=== PATIENT | female | born 1985 | race African-American/Black ===

== ENCOUNTER 2017-03-19 03:40 | Inpatient (IN) | payer SELFPAY ==
[2017-03-19] MEDS: DEXTROSE 5%-LACTATED RINGERS 1,000 ML IV SCH ×3 (04:30→16:58)
[2017-03-19 05:02] LABS: BASO % 0.3 % (0-2.0); EOS % 0.3 % (0-4.5); HEMATOCRIT 41.8 % (32.4-45.2); HEMOGLOBIN 13.8 GM/dL (10.7-15.3); LYMPH % 29.9 % (8-40); MCH 29.2 pg (25.7-33.7); MEAN CELL VOLUME 88.5 fl (80-96); MEAN PLT VOLUME 11.7 fl (7.5-11.1); MONO % 13.5 % (3.8-10.2); PLATELET COUNT 126 K/MM3 (134-434); RBC 4.72 M/mm3 (3.60-5.2); RDW 16.6 % (11.6-15.6); WHITE BLOOD COUNT 8.7 K/mm3 (4.0-10.0)
--- NOTE | 2017-03-19 05:09 | HP ---
Past Medical History - Primary Care Physician PCP:: Ta Mariscal - Admission Chief Complaint: 39.4 weeks , rom, labor History of Present Illness: 31 yo f g 2 p0010 edc by sono 03/21/17 39,4 weeks c/o ROM since 230 am today , clear fluid , cx closed 50, vx -2 mr, fhr cat 2, contraction q 3 min, mild. History Source: Patient Limitations to Obtaining History: No Limitations - Past Medical History ...: 2 ...Para: 0 ...Spon : 1 ... Weeks Gestation by Dates: 39.4 ...EDC by Dates: 03/21/17 ...EDC by Sono: 03/21/17 - Past Surgical History Hx Myomectomy: No Hx Transabdominal Cerclage: No - Smoking History Have you smoked in the past 12 months: No - Alcohol/Substance Use Hx Alcohol Use: No - Social History Usual Living Arrangement: Yes: With Spouse History of Recent Travel: No Review of Systems - Review of Systems Constitutional: reports: No Symptoms Eyes: reports: No Symptoms HENT: reports: No Symptoms Neck: reports: No Symptoms Cardiovascular: reports: No Symptoms Respiratory: reports: No Symptoms Gastrointestinal: reports: No Symptoms Genitourinary: reports: No Symptoms Breasts: reports: No Symptoms Reported Musculoskeletal: reports: Muscle Pain Integumentary: reports: No Symptoms Neurological: reports: No Symptoms Endocrine: reports: No Symptoms Hematology/Lymphatic: reports: No Symptoms Psychiatric: reports: No Symptoms Physical Exam - Maternity Constitutional: Yes: Well Nourished, No Distress, Calm Eyes: Yes: WNL, Conjunctiva Clear, EOM Intact HENT: Yes: WNL, Atraumatic, Normocephalic Neck: Yes: WNL, Supple, Trachea Midline Cardiovascular: Yes: WNL, Regular Rate and Rhythm Breast(s): Yes: WNL - Abdominal Exam/OB Fundal Height: 40 Number of Fetuses: Single Presentation: Vertex Contractions: Yes Regularity: Regular Intensity: Mod/Strong Monitor Mode: External Heart Rate Location: [facility] Category: I Accelerations: Non-Uniform Decelerations: None - Vaginal Exam/OB Vaginal Bleediing: No Speculum Exam: No Dilatation (cm): closed Effacement (%): 50 Amniotic Membrane Status: Ruptured Nitrazine Test: Positive Presentation: Vertex/Position Station: -2 - Physical Exam Musculoskeletal: Yes: WNL Extremities: Yes: WNL Edema: Yes Edema: LLE: Trace, RLE: Trace Deep Tendon Reflex Grade: Normal +2 Psychiatric: Yes: WNL - Labs Lab Results: CBC, BMP 03/19/17 04:30 Hemorrhage Risk Assessment - Risk Factors Medium Risk Factors: Yes: None High Risk Factors: Yes: None Risk Score: 1 Risk Level: Medium Risk Problem List - Problems (1) with 39 completed weeks gestation Code(s): Z3A.39 - 39 WEEKS GESTATION OF (2) membrane rupture Code(s): ALC7473 - Assessment/Plan admit, FHM, pain management GBS negative
[2017-03-19] MEDS ORDERED: BUTORPHANOL TARTRATE 1 MG/ML VIAL IVPUSH ONE (05:15)
[2017-03-19] MEDS ORDERED: PROMETHAZINE HCL 25 MG/1 ML VIAL IVPUSH ONE (05:15)
[2017-03-19 05:19] LABS: INR 0.92 (0.82-1.09); PROTHROMBIN TIME (PATIENT) 10.4 SEC (9.98-11.88)
[2017-03-19 05:21] LABS: ACTIVATED PTT 28.4 SECONDS (26.9-34.4)
[2017-03-19 05:27] LABS: ANION GAP 12 (8-16); BLOOD UREA NITROGEN 5 mg/dL (7-18); CALCIUM 9.5 mg/dL (8.5-10.1); CHLORIDE 103 mmol/L (98-107); CO2 23 mmol/L (21-32); CREATININE 0.9 mg/dL (0.55-1.02); GLUCOSE,RANDOM 72 mg/dL (74-106); POTASSIUM 4.1 mmol/L (3.5-5.1); SODIUM 138 mmol/L (136-145)
[2017-03-19 05:46] VITALS: BMI 32.1
[2017-03-19] MEDS ORDERED: OXYTOCIN 30 UNITS in 0.9% NS 30 UNIT/500 ML INFUS.BAG IVPB SCH (09:00)
[2017-03-19] MEDS ORDERED: OXYTOCIN 30 UNITS in 0.9% NS 30 UNIT/500 ML INFUS.BAG IVPB ONE (09:06)
[2017-03-19] MEDS ORDERED: BUTORPHANOL TARTRATE 1 MG/ML VIAL ONE ×2 (13:45)
[2017-03-19] MEDS ORDERED: PROMETHAZINE HCL 25 MG/1 ML VIAL ONE (13:45)
[2017-03-19] MEDS ORDERED: CITRIC ACID/SODIUM CITRATE 30 ML UNIT-DOSE CUP PO ONE (18:36)
[2017-03-19] MEDS ORDERED: ELECTROLYTE-148 SOLN 500 ML IV ONE (18:36)
--- NOTE | 2017-03-19 19:25 | PN ---
Ante-Partal Exam - Subjective Subjective: Patient reports pain with contractions 10 Vital Signs: Vital Signs Temperature 97.7 F 03/19/17 18:00 Pulse Rate 106 H 03/19/17 18:00 Respiratory Rate 20 03/19/17 18:00 Blood Pressure 107/68 03/19/17 18:00 O2 Sat by Pulse Oximetry (%) Bleeding: No Headache: No Visual changes: No Right upper quadrant pain: No - Contractions Contractions: Yes Regularity: Regular Intensity: Mod/Strong Monitor Mode: External - Exam during Labor Heart Rate: 130 Variability: Moderate Category: II Monitor Accelerations: Absent Monitor Decelerations: None Exam: Vaginal Dilatation (cm): FT Effacement (%): 80 Amniotic Membrane Status: Intact Presentation: Vertex Station: -3 - Intrapartum Hemorrhage Risk Medium Risk Factors: None High Risk Factors: None Risk Score: 0 Risk Level: Low Risk - Assessment/Plan Assessment/Plan: 31 yo PROM, unchanged exam Discussed unchanged exam since admission and adequate contractions with nonreactive tracing - offered continued augmentation vs delivery. Patient desires delivery via delivery. Discussed risks including but not limited to infection, bleeding requiring transfusion and damage to surrounding organs such as the bowel or bladder. Discussed risk of injury to infant. Discussed risk of wound infection and separation. Discussed need for planning of future children and possibility of abnormal placentation. All questions answered. Patient expressed understanding. Nursing and OR staff notified. Will proceed to OR
[2017-03-19] MEDS ORDERED: morphine SULFATE/Preservative Free 0.5 MG/ML (1cc Syringe) ONE (20:22)
[2017-03-19] MEDS ORDERED: OXYTOCIN 10 UNITS/ML VIAL ONE ×2 (20:25→21:38)
[2017-03-19] MEDS ORDERED: ceFAZolin SODIUM 1 GM VIAL ONE (20:41)
[2017-03-19] MEDS: OXYTOCIN 20 UNITS in 0.9% NS 20 UNIT/1,000 ML INFUS.BAG IV SCH (21:10)
[2017-03-19 21:49] LABS: ARTERIAL BLOOD GAS BASE EXCESS 1.1 meq/l (-2-2); ARTERIAL BLOOD GAS pH 7.3 (7.35-7.45)
[2017-03-19] MEDS ORDERED: IBUPROFEN 800 MG/8 ML IJ IVPB PRN ×2 (21:51→22:10)
[2017-03-19] MEDS ORDERED: oxyCODONE HCL 5 MG TABLET PO PRN ×2 (21:51)
[2017-03-19] MEDS ORDERED: METHYLERGONOVINE MALEATE 0.2 MG/1 ML AMP IM PRN (21:51)
[2017-03-19 21:56] LABS: ARTERIAL BLOOD GAS PCO2 61.3 mmHg (35-45)
[2017-03-19 21:57] LABS: ARTERIAL BLOOD GAS PO2 18.1 mmHg (80-100)
[2017-03-19 21:58] LABS: VENOUS PH 7.3 (7.32-7.42)
--- NOTE | 2017-03-19 21:58 | PN ---
Delivery - Delivery Type of Anesthesia: Spinal EBL (cc): 800 Delivery, Single - Stages of Labor Date of Delivery: 03/19/17 Placenta: Yes: Expressed - Condition of Gender: Female Weight: 9 lb 5.6 oz Position: Left, OA - 1 Minute Total Score: 9 5 Minutes Total Score: 9 - Feeding Plan Initial Plan: Exclusive throughout hospitalization Remarks - Remarks Remarks: Surgeon: Sly Flake Cutter Operator: Brody Anesthesia: Dov, spinal Findings: Female ; LOT position; 9,9; wt 9 lb 5.6 oz; 20 inches IVFluids: 1500 UOP: 200 EBL: 800 Dictation:[id number]
[2017-03-19 21:59] LABS: VENOUS PC02 59.7 mmHg (38-52); VENOUS PO2 24.6 mmHg (28-48)
[2017-03-19] MEDS ORDERED: ONDANSETRON 4 MG/2 ML VIAL IVPUSH PRN (22:10)
[2017-03-19] MEDS ORDERED: OXYTOCIN 20 UNITS in 0.9% NS 20 UNIT/1,000 ML INFUS.BAG IV ONE (23:21)
[2017-03-20 06:41] LABS: BASO % 0.4 % (0-2.0); HEMATOCRIT 37.6 % (32.4-45.2); HEMOGLOBIN 12.3 GM/dL (10.7-15.3); LYMPH % 10.5 % (8-40); MCH 29.3 pg (25.7-33.7); MCHC 32.7 g/dl (32.0-36.0); MEAN CELL VOLUME 89.7 fl (80-96); MEAN PLT VOLUME 11.5 fl (7.5-11.1); NEUT % 80.1 % (42.8-82.8); PLATELET COUNT 128 K/MM3 (134-434); RDW 16.7 % (11.6-15.6); WHITE BLOOD COUNT 16.7 K/mm3 (4.0-10.0)
[2017-03-20] MEDS: OXYTOCIN 20 UNITS in 0.9% NS 20 UNIT/1,000 ML INFUS.BAG IV SCH ×2 (07:40→15:36)
--- NOTE | 2017-03-20 08:21 | OP ---
DATE OF OPERATION: 03/19/2017 ATTENDING PHYSICIAN RESPONSIBLE FOR SIGNING REPORT: Alvina Frank MD PREOPERATIVE DIAGNOSIS: Intrauterine at 39-4/7 weeks, failure to progress, nonreassuring tracing. POSTOPERATIVE DIAGNOSIS: Intrauterine at 39-4/7 weeks, failure to progress, nonreassuring tracing. SURGEON: Alvina Frank MD STOREPERSON: Jessika Skinner MD ANESTHESIOLOGIST: Minh Monae MD ANESTHESIA: Spinal. INTRAVENOUS FLUIDS GIVEN: 1500. URINE OUTPUT: 200. ESTIMATED BLOOD LOSS: 800. FINDINGS: A female infant, LOT position, Apgars 9 and 9. Weight 9 pounds 5.6 ounces, 20 inches. Normal fallopian tubes and enlarged ovaries bilaterally, suspect polycystic appearance. INDICATION FOR PROCEDURE: Patient is a 31-year-old, 2, para 0, who presented with PROM, was started with induction of labor, noted to have no cervical change. Was also noted to have a nonreactive tracing. She was counseled on her risks, benefits, alternatives, and complications of procedure including infection, bleeding, damage to surrounding organs such as bowel, bladder, ureters. She expressed understanding, was brought to the operating room. DESCRIPTION OF PROCEDURE: She was brought to the operating room, and anesthesia was found to be adequate. Patient was prepped and draped in normal sterile fashion, placed in dorsal supine position with a leftward tilt. An approximately 11-cm skin incision was made with a knife and carried down to the underlying rectus muscle using the Bovie electrocautery. The fascia was dissected midline and dissected off the underlying rectus muscles using the Campos scissors. Attention was brought to the inferior portion where, in similar fashion, was tented up using Alysia clamps and dissected off the underlying rectus muscle using the Campos scissors. Attention was brought to the superior portion where, in a similar fashion, was tented up using the Alysia clamps and dissected off the underlying rectus muscle using Campos scissors. The rectus muscles were midline using the Campos scissors, and the peritoneum was entered bluntly. The peritoneal incision was extended superiorly and inferiorly using the Metzenbaum scissors. The vesicouterine peritoneum was identified, entered sharply, and the bladder flap was created digitally. The hysterotomy was performed. Clear fluid was noted. 's head was brought to the hysterotomy site and was delivered, followed by shoulders and body. Infant was handed to waiting NICU staff present for delivery given the heart tracing. Cord blood and cord gases were collected and sent. The placenta was extracted. The uterus was cleared of all clot and debris. The uterus was closed using 0 Biosyn in a running layer, and the second layer was an imbricated layer. The vesicouterine peritoneum was reapproximated using 0 Biosyn in a running fashion. Gutters were cleared of all clot and debris. Bilateral fallopian tubes and ovaries were identified. Fallopian tubes were noted to be normal. Bilateral ovaries were noted to be enlarged with multiple follicles, suspected polycystic appearance. The hysterotomy was examined, found to be hemostatic. The peritoneum was closed using 2-0 Biosyn in a running fashion. The rectus muscles were reapproximated using 0 Biosyn in interrupted fashion. The fascia was closed using 0 Vicryl in a running fashion. Subcutaneous fat was closed using 2-0 Biosyn in an interrupted fashion. Skin was closed using 3-0 Vicryl. The patient tolerated the procedure well. Estimated blood loss was 800 mL. She was brought to recovery room in stable condition. ALVINA FRANK M.D. [id number] MTDD
[2017-03-20] MEDS: ENOXAPARIN NA (PORCINE) 40 MG/0.4 ML DISP.SYRIN SQ SCH (10:02)
--- NOTE | 2017-03-20 10:24 | PN ---
Progress Note, Physician Chief Complaint: day #1 s/p C/S - Current Medication List Current Medications: Active Medications Acetaminophen (Tylenol -) 650 mg PO Q4H PRN PRN Reason: FEVER Bisacodyl (Dulcolax Suppository -) 10 mg RC PRN PRN PRN Reason: CONSTIPATION Diphenhydramine HCl (Benadryl Injection -) 25 mg IVPUSH Q4H PRN PRN Reason: FOR ITCHING Enoxaparin Sodium (Lovenox -) 40 mg SQ DAILY RADHA Last Admin: 03/20/17 10:02 Dose: 40 mg Dextrose/Lactated Ringer's (D5-Lr -) 1,000 mls @ 125 mls/hr IV ASDIR RADHA Last Admin: 03/19/17 16:58 Dose: 125 mls/hr Oxytocin/Sodium Chloride (Normal Saline+30 Units Oxytocin) 30 unit in 500 mls @ 1 mls/hr IVPB ASDIR RADHA; 0.06 UNIT/HR PRN Reason: Protocol Last Titration: 03/19/17 16:19 Dose: 0 unit/hr, 0 mls/hr Oxytocin/Sodium Chloride (Normal Saline+20 Units Oxytocin -) 20 unit in 1,000 mls @ 125 mls/hr IV ASDIR RADHA Last Admin: 03/20/17 07:40 Dose: 125 mls/hr Ibuprofen (Motrin -) 600 mg PO Q4H PRN PRN Reason: PAIN Ibuprofen (Caldolor Injection -) 800 mg IVPB Q8H PRN PRN Reason: PAIN OR FEVER Ibuprofen (Caldolor Injection -) 800 mg IVPB Q6H PRN PRN Reason: Pain - Pacu Stop: 03/20/17 20:30 Methylergonovine Maleate (Methergine Injection -) 0.2 mg IM Q4H PRN PRN Reason: Excessive Bleeding (L&D) Ondansetron HCl (Zofran Injection) 4 mg IVPUSH Q6H PRN PRN Reason: NAUSEA AND/OR VOMITING Last Admin: 03/20/17 01:29 Dose: 4 mg Oxycodone HCl (Roxicodone -) 5 mg PO Q4H PRN PRN Reason: PAIN LEVEL 1-5 Oxycodone HCl (Roxicodone -) 10 mg PO Q4H PRN PRN Reason: PAIN LEVEL 6-10 Simethicone (Mylicon -) 80 mg PO Q4H PRN PRN Reason: GAS - Objective Vital Signs: Vital Signs Temperature 99.7 F H 03/20/17 10:00 Pulse Rate 101 H 03/20/17 10:00 Respiratory Rate 20 03/20/17 10:00 Blood Pressure 120/57 03/20/17 10:00 O2 Sat by Pulse Oximetry (%) 99 03/20/17 00:00 Constitutional: Yes: Well Nourished, No Distress, Calm Labs: CBC, BMP 03/20/17 06:15 03/19/17 04:30 INR, PTT INR 0.92 (0.82-1.09) 03/19/17 04:30 Assessment/Plan doing well after c/s with spinal. No anesthetic issues. Continue current care
--- NOTE | 2017-03-20 11:41 | PN ---
Post Progress Note - Subjective Subjective: No complaints. No flatus or BM yet. No nausea or vomiting. Post Day: 1 Type of Delivery: Primary C/S Vital Signs: Vital Signs Temperature 99.7 F H 03/20/17 10:00 Pulse Rate 101 H 03/20/17 10:00 Respiratory Rate 20 03/20/17 10:00 Blood Pressure 120/57 03/20/17 10:00 O2 Sat by Pulse Oximetry (%) 99 03/20/17 00:00 Breast Exam: Yes: Soft Uterus: Yes: Fundus Firm, Fundus below umbilicus, Non-tender Incision: Yes: Dressing dry and intact Abdomen/GI: Yes: Abdomen soft, Tolerating PO Lochia: Yes: Rubra Lochia, amount: Small Extremities: Yes: Calves non-tender, Edema Perineum: Yes: Intact - Labs Labs: CBC WBC 16.7 K/mm3 (4.0-10.0) H D 03/20/17 06:15 RBC 4.20 M/mm3 (3.60-5.2) 03/20/17 06:15 Hgb 12.3 GM/dL (10.7-15.3) D 03/20/17 06:15 Hct 37.6 % (32.4-45.2) 03/20/17 06:15 MCV 89.7 fl (80-96) 03/20/17 06:15 MCH 29.3 pg (25.7-33.7) 03/20/17 06:15 MCHC 32.7 g/dl (32.0-36.0) 03/20/17 06:15 RDW 16.7 % (11.6-15.6) H 03/20/17 06:15 Plt Count 128 K/MM3 (134-434) L 03/20/17 06:15 MPV 11.5 fl (7.5-11.1) H 03/20/17 06:15 Neutrophils % 80.1 % (42.8-82.8) D 03/20/17 06:15 Lymphocytes % 10.5 % (8-40) D 03/20/17 06:15 Monocytes % 9.0 % (3.8-10.2) 03/20/17 06:15 Eosinophils % 0.0 % (0-4.5) D 03/20/17 06:15 Basophils % 0.4 % (0-2.0) 03/20/17 06:15 Assessment/Plan 31yo P1 s/p primary LT C/S, doing well stable, afebrile. Low grade temp noted. No focal source of infection at this time. Plan to monitor VS/Temp care instructions reviewed. Continue routine postop care. Incentive spirometry Ambulation encouraged.
[2017-03-20] MEDS ORDERED: BISACODYL 10 MG SUPP.RECT RC PRN (21:52)
[2017-03-21] MEDS: SIMETHICONE 80 MG TAB.CHEW (FP) PO PRN ×2 (02:11→21:21)
--- NOTE | 2017-03-21 07:29 | PN ---
Post Progress Note - Subjective Subjective: Patient without acute complaints. Reports tolerating oral intake without nausea or vomiting. Ambulating without dizziness. Denies fevers or chills. Pain well controlled with oral pain medication. without difficulty. Passing flatus. Post Day: 2 Type of Delivery: Primary C/S Vital Signs: Vital Signs Temperature 98.5 F 03/20/17 22:00 Pulse Rate 99 H 03/20/17 22:00 Respiratory Rate 18 03/20/17 22:00 Blood Pressure 119/76 03/20/17 22:00 O2 Sat by Pulse Oximetry (%) 99 03/20/17 00:00 Breast Exam: Yes: Engorged Uterus: Yes: Fundus Firm, Fundus below umbilicus Incision: Yes: Sutures intact. No: Redness, Oozing Abdomen/GI: Yes: Abdomen soft, Tender (mild incisional), Passing flatus, Tolerating PO. No: Abdominal Distention Lochia: Yes: Serosa Lochia, amount: Small Extremities: Yes: Calves non-tender, Edema (trace) Activity: Ambulating - Labs Labs: CBC WBC 16.7 K/mm3 (4.0-10.0) H D 03/20/17 06:15 RBC 4.20 M/mm3 (3.60-5.2) 03/20/17 06:15 Hgb 12.3 GM/dL (10.7-15.3) D 03/20/17 06:15 Hct 37.6 % (32.4-45.2) 03/20/17 06:15 MCV 89.7 fl (80-96) 03/20/17 06:15 MCH 29.3 pg (25.7-33.7) 03/20/17 06:15 MCHC 32.7 g/dl (32.0-36.0) 03/20/17 06:15 RDW 16.7 % (11.6-15.6) H 03/20/17 06:15 Plt Count 128 K/MM3 (134-434) L 03/20/17 06:15 MPV 11.5 fl (7.5-11.1) H 03/20/17 06:15 Neutrophils % 80.1 % (42.8-82.8) D 03/20/17 06:15 Lymphocytes % 10.5 % (8-40) D 03/20/17 06:15 Monocytes % 9.0 % (3.8-10.2) 03/20/17 06:15 Eosinophils % 0.0 % (0-4.5) D 03/20/17 06:15 Basophils % 0.4 % (0-2.0) 03/20/17 06:15 Assessment/Plan 31 yo POD #2 s/p primary CD, afebrile, vital signs stable, doing well 1. Continue routine postoperative care. 2. Encourage ambulation and incentive spirometer use 3. Continue oral pain medication 4. Anticipate discharge home postoperative day #3 or #4
[2017-03-21] MEDS: ENOXAPARIN NA (PORCINE) 40 MG/0.4 ML DISP.SYRIN SQ SCH (09:49)
[2017-03-21] MEDS: PRENATAL VITAMINS W/ FOLIC ACID TABLET (FP) PO SCH (09:49)
[2017-03-21] MEDS ORDERED: PATIENT'S OWN MEDICATION (NON-FORMULARY) (Prenat 115/Iron Fum/Folic/Dss [Prenatal 19 Table PO SCH (10:00)
[2017-03-21] MEDS: IBUPROFEN 600 MG TABLET (FP) PO PRN (21:20)
[2017-03-21] MEDS: ACETAMINOPHEN 325 MG TABLET (FP) PO PRN (21:21)
[2017-03-22 07:30] LABS: BASO % 0.2 % (0-2.0); EOS % 0.8 % (0-4.5); HEMATOCRIT 33.9 % (32.4-45.2); HEMOGLOBIN 11.2 GM/dL (10.7-15.3); LYMPH % 25.9 % (8-40); MCH 29.9 pg (25.7-33.7); MEAN CELL VOLUME 90.4 fl (80-96); MEAN PLT VOLUME 11.9 fl (7.5-11.1); MONO % 12.1 % (3.8-10.2); PLATELET COUNT 138 K/MM3 (134-434); RBC 3.75 M/mm3 (3.60-5.2); RDW 15.9 % (11.6-15.6); WHITE BLOOD COUNT 9.4 K/mm3 (4.0-10.0)
--- NOTE | 2017-03-22 09:48 | PN ---
Post Progress Note - Subjective Subjective: Patient without acute complaints. Reports tolerating oral intake without nausea or vomiting. Ambulating without dizziness. Denies fevers or chills. Pain well controlled with oral pain medication. without difficulty. Passing flatus. Post Day: 3 Type of Delivery: Primary C/S Vital Signs: Vital Signs Temperature 98.6 F 03/22/17 08:55 Pulse Rate 93 H 03/22/17 08:55 Respiratory Rate 20 03/22/17 08:55 Blood Pressure 115/76 03/22/17 08:55 O2 Sat by Pulse Oximetry (%) 99 03/20/17 00:00 Breast Exam: Yes: Engorged Uterus: Yes: Fundus Firm Incision: Yes: Sutures intact. No: Redness, Oozing Abdomen/GI: Yes: Abdomen soft, Abdominal Distention (softly), Tender (incisional ), Passing flatus, Tolerating PO, Other Lochia: Yes: Serosa Lochia, amount: Small Extremities: Yes: Edema (trace) Activity: Ambulating - Labs Labs: CBC WBC 9.4 K/mm3 (4.0-10.0) D 03/22/17 07:00 RBC 3.75 M/mm3 (3.60-5.2) 03/22/17 07:00 Hgb 11.2 GM/dL (10.7-15.3) 03/22/17 07:00 Hct 33.9 % (32.4-45.2) 03/22/17 07:00 MCV 90.4 fl (80-96) 03/22/17 07:00 MCH 29.9 pg (25.7-33.7) 03/22/17 07:00 MCHC 33.0 g/dl (32.0-36.0) 03/22/17 07:00 RDW 15.9 % (11.6-15.6) H 03/22/17 07:00 Plt Count 138 K/MM3 (134-434) 03/22/17 07:00 MPV 11.9 fl (7.5-11.1) H 03/22/17 07:00 Neutrophils % 61.0 % (42.8-82.8) D 03/22/17 07:00 Lymphocytes % 25.9 % (8-40) D 03/22/17 07:00 Monocytes % 12.1 % (3.8-10.2) H 03/22/17 07:00 Eosinophils % 0.8 % (0-4.5) D 03/22/17 07:00 Basophils % 0.2 % (0-2.0) 03/22/17 07:00 Assessment/Plan 31 yo POD #3 s/p primary CD, afebrile, vital signs stable, doing well 1. Continue routine postoperative care. 2. Encourage ambulation and incentive spirometer use 3. Continue oral pain medication 4. Mild abdominal distension, passing flatus, + BM and tolerating oral intake. Low suspicion of ileus. Encouraged ambulation, encouraged flatus 5. Anticipate discharge home postoperative day #4
[2017-03-22] MEDS: PRENATAL VITAMINS W/ FOLIC ACID TABLET (FP) PO SCH (10:00)
[2017-03-22] MEDS: ENOXAPARIN NA (PORCINE) 40 MG/0.4 ML DISP.SYRIN SQ SCH (10:00)
[2017-03-23] MEDS: SIMETHICONE 80 MG TAB.CHEW (FP) PO PRN (04:02)
[2017-03-23] MEDS: IBUPROFEN 600 MG TABLET (FP) PO PRN (04:03)
[2017-03-23] MEDS: ACETAMINOPHEN 325 MG TABLET (FP) PO PRN (04:03)
[2017-03-23 09:11] VITALS: BP 107/52; PULSE 77; TEMP 97.8
[2017-03-23] MEDS: PRENATAL VITAMINS W/ FOLIC ACID TABLET (FP) PO SCH (09:21)
[2017-03-23] MEDS: ENOXAPARIN NA (PORCINE) 40 MG/0.4 ML DISP.SYRIN SQ SCH (09:21)
--- NOTE | 2017-03-23 11:26 | DS ---
Physical Exam-PLAYGROUND SUPERVISOR Vital Signs: Vital Signs Temperature 97.8 F 03/23/17 09:10 Pulse Rate 77 03/23/17 09:10 Respiratory Rate 18 03/23/17 09:10 Blood Pressure 107/52 03/23/17 09:10 O2 Sat by Pulse Oximetry (%) 99 03/20/17 00:00 Constitutional: Yes: Well Nourished, No Distress, Calm Eyes: Yes: WNL, Conjunctiva Clear, EOM Intact HENT: Yes: WNL, Atraumatic, Normocephalic Neck: Yes: WNL, Supple, Trachea Midline Cardiovascular: Yes: WNL, Regular Rate and Rhythm Respiratory: Yes: WNL, Regular, CTA Bilaterally Gastrointestinal: Yes: WNL, Normal Bowel Sounds ...Rectal Exam: Yes: WNL Renal/: Yes: WNL ....Post : Yes: Uterus firm, Uterus non-tender, Slight lochia rubra Breast(s): Yes: WNL Musculoskeletal: Yes: WNL Extremities: Yes: WNL Integumentary: Yes: WNL Wound/Incision: Yes: Clean/Dry, Well Approximated, Sutures Intact Neurological: Yes: WNL, Alert, Oriented ...Motor Strength: WNL Psychiatric: Yes: WNL, Alert, Oriented Labs: CBC, BMP 03/22/17 07:00 03/19/17 04:30 Delivery - Delivery Section: Low Flap Transverse Type of Anesthesia: Spinal Episiotomy/Laceration: None EBL (cc): 800 Delivery, Single - Stages of Labor Date 2nd Stage Initiated: 03/19/17 Time 2nd Stage Initiated: 13:50 Date of Delivery: 03/19/17 Time of Delivery: 21:08 Time Placenta Delivered: 21:10 Placenta: Yes: Expressed - Condition of Infant Manager Of Pmo/Arborist Representative Present: Yes Name: Subha Frey Gender: Female Weight: 9 lb 5.6 oz Position: Left, OA Total Hours ROM (Hrs/Mins): 18H40M - 1 Minute Total Score: 9 5 Minutes Total Score: 9 - Feeding Plan Initial Plan: Exclusive throughout hospitalization Discharge Summary Reason For Visit: LABOR ADMIT Current Active Problems membrane rupture (Acute) with 39 completed weeks gestation (Acute) Procedures: Principal: primary LST c/s Condition: Good - Instructions Diet, Activity, Other Instructions: regular diet, no intercourse, follow up office 1 week Disposition: HOME - Home Medications Comprehensive Discharge Medication List: Ambulatory Orders Prenat 115/Iron Fum/Folic/Dss [ 19 Tablet] 1 tab PO DAILY 03/19/17 Ibuprofen [Motrin -] 600 mg PO QID #28 tablet 03/23/17
--- NOTE | 2017-03-24 15:03 | PATH ---
Surgical Pathology Report Patient Name: CAMMIE ESTRADA Med. Rec. 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 Specimen(s) Received PLACENTA Clinical History , 39.4 weeks gestation, failure to progress, nonreassuring heart rate Final Diagnosis PLACENTA, SECTION: 528 g THIRD TRIMESTER PLACENTA WITH TRIVASCULAR UMBILICAL CORD AND UNREMARKABLE PLACENTAL MEMBRANES. Electronically Signed Mahi Ramos M.D. Gross Description The specimen is received fresh labeled placenta and is a 528 gram, 20.0 x 16.0 x 2.2 cm. placenta with attached membranes and umbilical cord. The attached membranes are [place] ri[place], thick, cloudy and insert marginally. The umbilical cord measures 12.5 cm. in length and averages 1.2 cm. in diameter. The cord inserts centrally. No true knots or strictures are identified. Cut surface of the umbilical cord reveals 3 vessels. The surface is toro-blue with minimal fibrin deposition and appropriate caliber vessels. The maternal surface is red-brown with focal defects. Sectioning reveals red-brown, spongy parenchyma. No lesions are identified. Event Sales Assistant sections are submitted in three cassettes as follows: 1- membrane rolls and umbilical cord; 2-3- full thickness sections of placenta. /03/23/201703/23/2017
== END 2017-03-23 12:46 | disposition home or self-care (01) | DRG 540 ==
LOC: JLDR 03:40 → J3W 23:30
PROVIDERS: ADMIT Obstetrics & Gynecology; ATTEND Obstetrics & Gynecology
PROC: 10D00Z1 Extraction of Products of Conception, Low, Open Approach (ICD-10-PCS; principal; 2017-03-19)
DX: O76 Abnormality in fetal heart rate and rhythm complicating labor and delivery (principal); O62.0 Primary inadequate contractions; Z3A.39 39 weeks gestation of pregnancy; Z37.0 Single live birth
CPT/HCPCS: 36415; 36600; 71045-TC-FY; 80048; 82803; 85025; 85610; 85730; 86593; 86850; 86900; 86901; 88307-TC; 94010

== ENCOUNTER 2021-01-07 06:40 | Inpatient (IN) | payer OTHER ==
[2021-01-07] MEDS ORDERED: CITRIC ACID/SODIUM CITRATE 30 ML UNIT-DOSE CUP PO ONE (07:48)
[2021-01-07] MEDS ORDERED: TRIAMCINOLONE ACETONIDE 40 MG/ML 10 ML VIAL SQ ONE (07:50)
[2021-01-07] MEDS ORDERED: ELECTROLYTE-148 SOLN 1,000 ML IV SCH (08:00)
[2021-01-07] MEDS ORDERED: ONDANSETRON 4 MG/2 ML VIAL IVPUSH PRN (08:29)
[2021-01-07] MEDS ORDERED: morphine SULFATE/PF 1 MG/2 ML (2cc Syringe - QUVA) EP ONE (08:29)
[2021-01-07] MEDS ORDERED: IBUPROFEN 600 MG TABLET (FP) PO PRN ×2 (08:29→09:00)
[2021-01-07] MEDS ORDERED: ACETAMINOPHEN 325 MG TABLET (FP) PO PRN ×2 (08:29→09:00)
[2021-01-07] MEDS ORDERED: TRIAMCINOLONE ACET 40MG/1ML VIAL IM ONE (08:30)
[2021-01-07] MEDS ORDERED: ePHEDrine SULFATE 50 MG/1 ML AMPULE ONE (08:57)
[2021-01-07] MEDS ORDERED: ceFAZolin SODIUM 1 GM VIAL ONE ×2 (08:59→17:30)
[2021-01-07] MEDS ORDERED: METHYLERGONOVINE MALEATE 0.2 MG/1 ML AMP IM PRN (09:00)
[2021-01-07] MEDS ORDERED: PROPOFOL 20 ML ONE (09:01)
[2021-01-07] MEDS ORDERED: TRIAMCINOLONE ACET 40MG/1ML VIAL IJ ONE (09:45)
[2021-01-07] MEDS ORDERED: OXYTOCIN 10 UNIT/ML 10ML MDV ONE (09:58)
[2021-01-07] MEDS ORDERED: KETOROLAC TROMETHAMINE 30 MG/1 ML VIAL ONE (09:58)
[2021-01-07] MEDS ORDERED: ONDANSETRON 4 MG/2 ML VIAL ONE (09:58)
[2021-01-07 09:59] VITALS: BMI 32.9
[2021-01-07] MEDS: CEFAZOLIN 1 GM in DEXTROSE 5%-WATER - 50 ML IVPB SCH ×2 (10:20→18:17)
[2021-01-07] MEDS: PRENATAL VITAMINS W/ FOLIC ACID TABLET (FP) PO SCH (10:20)
[2021-01-07] MEDS ORDERED: LIDOCAINE HCL 1% PRESERVATIVE FREE - 30ML VIAL ONE (10:52)
[2021-01-07] MEDS: OXYTOCIN 20 UNITS in 0.9% NS 20 UNIT/1,000 ML INFUS.BAG IV SCH ×2 (11:15→18:17)
[2021-01-07] MEDS ORDERED: OXYTOCIN 20 UNITS in 0.9% NS 20 UNIT/1,000 ML INFUS.BAG IV ONE (11:15)
[2021-01-07 12:37] LABS: CORD BASE EXCESS -3.7 mmol/L (0-2); CORD HCO3 24.2 mmHg (20-29); CORD PCO2 54.5 mmHg (30-78); CORD pH 7.265 (7.14-7.44)
[2021-01-07 12:40] LABS: CORD HCO3 28.6 mmHg (20-29); CORD PCO2 71.1 mmHg (30-78); CORD pH 7.223 (7.14-7.44)
[2021-01-07] MEDS ORDERED: DEXTROSE 5%-WATER - 50 ML IVPB ONE (17:30)
[2021-01-07] MEDS ORDERED: oxyCODONE HCL 5 MG TABLET PO PRN ×2 (21:00)
[2021-01-08] MEDS ORDERED: ceFAZolin SODIUM 1 GM VIAL ONE ×3 (02:04→16:43)
[2021-01-08] MEDS ORDERED: DEXTROSE 5%-WATER - 50 ML IVPB ONE ×3 (02:04→16:42)
[2021-01-08] MEDS: CEFAZOLIN 1 GM in DEXTROSE 5%-WATER - 50 ML IVPB SCH ×3 (02:29→18:02)
[2021-01-08 08:30] LABS: BASO % 0.1 % (0-2.0); HEMATOCRIT 36.9 % (32.4-45.2); HEMOGLOBIN 12.4 GM/dL (10.7-15.3); LYMPH % 11.1 % (8-40); MCH 30.9 pg (25.7-33.7); MCHC 33.7 g/dl (32.0-36.0); MEAN CELL VOLUME 91.7 fl (80-96); MEAN PLT VOLUME 12.2 fl (7.5-11.1); MONO % 10.8 % (3.8-10.2); PLATELET COUNT 113 10^3/uL (134-434); RBC 4.02 M/mm3 (3.60-5.2); RDW 13.9 % (11.6-15.6); WHITE BLOOD COUNT 14.7 K/mm3 (4.0-10.0)
[2021-01-08] MEDS ORDERED: BISACODYL 10 MG SUPP.RECT RC PRN (09:00)
[2021-01-08] MEDS: SIMETHICONE 80 MG TAB.CHEW (FP) PO PRN ×2 (09:24→18:02)
[2021-01-08] MEDS: PRENATAL VITAMINS W/ FOLIC ACID TABLET (FP) PO SCH (09:24)
[2021-01-09] MEDS: PRENATAL VITAMINS W/ FOLIC ACID TABLET (FP) PO SCH (09:34)
[2021-01-10 08:25] LABS: BASO % 0.1 % (0-2.0); EOS % 0.1 % (0-4.5); HEMATOCRIT 35.6 % (32.4-45.2); HEMOGLOBIN 11.9 GM/dL (10.7-15.3); LYMPH % 20.3 % (8-40); MCH 31.1 pg (25.7-33.7); MCHC 33.4 g/dl (32.0-36.0); MEAN CELL VOLUME 93.1 fl (80-96); MEAN PLT VOLUME 12.3 fl (7.5-11.1); MONO % 11.5 % (3.8-10.2); PLATELET COUNT 121 10^3/uL (134-434); RBC 3.82 M/mm3 (3.60-5.2); RDW 13.8 % (11.6-15.6); WHITE BLOOD COUNT 10.9 K/mm3 (4.0-10.0)
[2021-01-10] MEDS: PRENATAL VITAMINS W/ FOLIC ACID TABLET (FP) PO SCH (09:06)
[2021-01-10 09:45] VITALS: BP 111/70; PULSE 65; TEMP 97.9
== END 2021-01-10 16:40 | disposition home or self-care (01) | DRG 788 ==
LOC: JLDR 06:40 → J3W 12:35
PROVIDERS: ADMIT Obstetrics & Gynecology; ATTEND Obstetrics & Gynecology
PROC: 10D00Z1 Extraction of Products of Conception, Low, Open Approach (ICD-10-PCS; principal; 2021-01-07)
DX: O34.219 Maternal care for unspecified type scar from previous cesarean delivery (principal); O24.420 Gestational diabetes mellitus in childbirth, diet controlled; Z3A.39 39 weeks gestation of pregnancy; Z37.0 Single live birth
CPT/HCPCS: 36415; 36600; 82803; 85025; 88304-TC; 88307-TC

== ENCOUNTER 2021-02-07 07:18 | Emergency (ER) | payer OTHER ==
[2021-02-07 07:43] VITALS: TEMP 97.8; BMI 27.4
[2021-02-07] MEDS ORDERED: SULFAMETHOXAZOLE/TRIMETHOPRIM 800MG/160MG D.S. TABLET PO ONE (11:19)
[2021-02-07] MEDS ORDERED: SULFAMETHOXAZOLE/TRIMETHOPRIM 800MG/160MG D.S. TABLET ONE (11:41)
[2021-02-07 11:55] VITALS: BP 112/78; PULSE 88
== END 2021-02-07 12:01 | disposition home or self-care (01) ==
LOC: JER 07:18
PROC: 0W9F3ZZ Drainage of Abdominal Wall, Percutaneous Approach (ICD-10-PCS; principal; 2021-02-07)
DX: T81.49XA Infection following a procedure, other surgical site, initial encounter (principal)
CPT/HCPCS: 76705-TC; 87070; 87186; 87205; 99284-25

== ENCOUNTER 2022-03-10 08:00 | Inpatient (IN) | payer OTHER ==
[2022-03-10] MEDS ORDERED: CITRIC ACID/SODIUM CITRATE 30 ML UNIT-DOSE CUP PO ONE (10:01)
[2022-03-10 10:11] VITALS: BMI 34.0
[2022-03-10] MEDS ORDERED: ELECTROLYTE-148 SOLN 1,000 ML IV SCH (10:15)
[2022-03-10] MEDS ORDERED: TRIAMCINOLONE ACET 40MG/1ML VIAL IM ONE (10:26)
[2022-03-10] MEDS ORDERED: IBUPROFEN 600 MG TABLET (FP) PO PRN (11:14)
[2022-03-10] MEDS ORDERED: ONDANSETRON 4 MG/2 ML VIAL IVPUSH PRN (11:14)
[2022-03-10] MEDS ORDERED: morphine SULFATE (PF) 1 MG/2 ML SYRINGE EP ONE (11:14)
[2022-03-10] MEDS ORDERED: ACETAMINOPHEN 325 MG TABLET (FP) PO PRN ×2 (11:14→13:18)
[2022-03-10] MEDS ORDERED: morphine SULFATE (PF) 1 MG/2 ML SYRINGE ONE (11:21)
[2022-03-10] MEDS ORDERED: SODIUM CHLORIDE 0.9% P/F 10 ML VIAL IJ ONE (11:22)
[2022-03-10] MEDS ORDERED: ceFAZolin SODIUM 1 GM VIAL ONE (11:22)
[2022-03-10] MEDS ORDERED: OXYTOCIN 10 UNITS/ML VIAL ONE ×2 (11:40→12:48)
[2022-03-10] MEDS ORDERED: PHENYLEPHRINE HCL 10 MG/1 ML SINGLE DOSE VIAL ONE (12:00)
[2022-03-10] MEDS ORDERED: ONDANSETRON 4 MG/2 ML VIAL ONE (12:52)
[2022-03-10 13:24] LABS: HIV INTERPRETATION NEGATIVE (NEGATIVE)
[2022-03-10 13:47] LABS: CORD BASE EXCESS -1.8 mmol/L (0-2); CORD HCO3 25.1 mmHg (20-29); CORD pH 7.318 (7.14-7.44)
[2022-03-10 13:48] LABS: CORD HCO3 22.5 mmHg (20-29); CORD PCO2 58.8 mmHg (30-78)
[2022-03-10] MEDS: OXYTOCIN 20 UNITS in 0.9% NS 20 UNIT/1,000 ML INFUS.BAG IV SCH ×2 (14:00→23:19)
[2022-03-10] MEDS ORDERED: OXYTOCIN 20 UNITS in 0.9% NS 20 UNIT/1,000 ML INFUS.BAG IV ONE (14:46)
[2022-03-10] MEDS: CEFAZOLIN SODIUM 2 GM in DEXTROSE 5%-WATER 100 ML IVPB SCH (17:53)
[2022-03-10] MEDS ORDERED: CEFAZOLIN SODIUM 2 GM VIAL IVPB SCH (18:00)
[2022-03-10] MEDS: SIMETHICONE 80 MG TAB.CHEW (FP) PO PRN (23:08)
[2022-03-10] MEDS: IBUPROFEN 800 MG/8 ML IJ IVPB PRN (23:09)
[2022-03-10] MEDS: METHYLERGONOVINE MALEATE 0.2 MG/1 ML AMP IM PRN (23:09)
[2022-03-11] MEDS ORDERED: oxyCODONE HCL 5 MG TABLET PO PRN ×2 (01:18)
[2022-03-11] MEDS: CEFAZOLIN SODIUM 2 GM in DEXTROSE 5%-WATER 100 ML IVPB SCH ×2 (02:25→09:54)
[2022-03-11] MEDS: METHYLERGONOVINE MALEATE 0.2 MG/1 ML AMP IM PRN (05:51)
[2022-03-11] MEDS: IBUPROFEN 800 MG/8 ML IJ IVPB PRN (05:51)
[2022-03-11] MEDS: SIMETHICONE 80 MG TAB.CHEW (FP) PO PRN ×2 (05:52→18:42)
[2022-03-11 09:07] LABS: BASO % 0.1 % (0-2.0); HEMATOCRIT 37.3 % (32.4-45.2); LYMPH % 9.5 % (8-40); MCHC 32.2 g/dl (32.0-36.0); MEAN PLT VOLUME 12.2 fl (7.5-11.1); MONO % 11.4 % (3.8-10.2); PLATELET COUNT 140 10^3/uL (134-434); RBC 4.14 M/mm3 (3.60-5.2); WHITE BLOOD COUNT 14.5 K/mm3 (4.0-10.0)
[2022-03-11] MEDS: ENOXAPARIN NA (PORCINE) 40 MG/0.4 ML DISP.SYRIN SQ SCH (09:54)
[2022-03-11] MEDS ORDERED: BISACODYL 10 MG SUPP.RECT RC PRN (13:18)
[2022-03-11] MEDS: IBUPROFEN 600 MG TABLET (FP) PO PRN (18:41)
[2022-03-11] MEDS: OXYTOCIN 20 UNITS in 0.9% NS 20 UNIT/1,000 ML INFUS.BAG IV SCH (19:36)
[2022-03-12] MEDS: IBUPROFEN 600 MG TABLET (FP) PO PRN (05:15)
[2022-03-12] MEDS: SIMETHICONE 80 MG TAB.CHEW (FP) PO PRN ×2 (05:15→16:45)
[2022-03-12] MEDS: ENOXAPARIN NA (PORCINE) 40 MG/0.4 ML DISP.SYRIN SQ SCH (09:20)
[2022-03-13] MEDS: SIMETHICONE 80 MG TAB.CHEW (FP) PO PRN (05:08)
[2022-03-13 08:09] LABS: BASO % 0.2 % (0-2.0); HEMATOCRIT 29.4 % (32.4-45.2); HEMOGLOBIN 9.6 GM/dL (10.7-15.3); LYMPH % 19.2 % (8-40); MCH 29.4 pg (25.7-33.7); MCHC 32.6 g/dl (32.0-36.0); MEAN CELL VOLUME 90.2 fl (80-96); MEAN PLT VOLUME 11.2 fl (7.5-11.1); MONO % 12.1 % (3.8-10.2); NEUT % 68.5 % (42.8-82.8); PLATELET COUNT 154 10^3/uL (134-434); RBC 3.26 M/mm3 (3.60-5.2); RDW 14.8 % (11.6-15.6); WHITE BLOOD COUNT 10.7 K/mm3 (4.0-10.0)
[2022-03-13 08:40] VITALS: RESP 16
[2022-03-13 08:41] VITALS: BP 105/59; PULSE 86; TEMP 98.7
[2022-03-13] MEDS: ENOXAPARIN NA (PORCINE) 40 MG/0.4 ML DISP.SYRIN SQ SCH (09:43)
== END 2022-03-13 12:57 | disposition home or self-care (01) | DRG 785 ==
LOC: JLDR 08:50 → J3W 14:50
PROVIDERS: ADMIT Obstetrics & Gynecology; ATTEND Obstetrics & Gynecology
PROC: 10D00Z1 Extraction of Products of Conception, Low, Open Approach (ICD-10-PCS; principal; 2022-03-10)
PROC: 0UT70ZZ Resection of Bilateral Fallopian Tubes, Open Approach (ICD-10-PCS; 2022-03-10)
DX: O34.219 Maternal care for unspecified type scar from previous cesarean delivery (principal); O24.420 Gestational diabetes mellitus in childbirth, diet controlled; O32.2XX0 Maternal care for transverse and oblique lie, not applicable or unspecified; O99.214 Obesity complicating childbirth; E66.9 Obesity, unspecified; O34.13 Maternal care for benign tumor of corpus uteri, third trimester; D25.9 Leiomyoma of uterus, unspecified; Z30.2 Encounter for sterilization; Z3A.39 39 weeks gestation of pregnancy; Z37.0 Single live birth
CPT/HCPCS: 36415; 36600; 82803; 85025; 87389; 88302-TC; 88304-TC; 88307-TC